=== PATIENT | male | born 1945 | race Caucasian/White ===

== ENCOUNTER 2024-05-27 08:26 | Outpatient (CLI) | payer MEDICARE, OTHER, SELFPAY | END 2024-05-27 08:27 | disposition home or self-care (01) | LOC: INJ CL 08:32 | PROVIDERS: PCP Family Medicine; Visit Provider Family Medicine | DX: M54.16 Radiculopathy, lumbar region (principal); M51.36 Other intervertebral disc degeneration, lumbar region | CPT/HCPCS: 64483; J1100; Q9966 ==

== ENCOUNTER 2024-08-08 09:52 | Outpatient (CLI) | payer MEDICARE, OTHER, SELFPAY | END 2024-08-08 09:53 | disposition home or self-care (01) | LOC: INJ CL 09:55 | PROVIDERS: PCP Family Medicine; Visit Provider Family Medicine | DX: M54.16 Radiculopathy, lumbar region (principal); M51.36 Other intervertebral disc degeneration, lumbar region | CPT/HCPCS: 64483; 64484; J1100; Q9966 ==

== ENCOUNTER 2024-12-16 10:05 | Outpatient (CLI) | payer MEDICARE, OTHER, SELFPAY | END 2024-12-16 10:06 | disposition home or self-care (01) | LOC: INJ CL 10:06 | PROVIDERS: PCP Family Medicine; Visit Provider Family Medicine | DX: M54.16 Radiculopathy, lumbar region (principal); M51.369 Other intervertebral disc degeneration, lumbar region without mention of lumbar back pain or lower extremity pain | CPT/HCPCS: 64483; 64484; J1100; Q9966 ==

== ENCOUNTER 2025-04-07 12:15 | Outpatient (CLI) | payer MEDICARE, OTHER, SELFPAY | END 2025-04-07 12:16 | disposition home or self-care (01) | LOC: INJ CL 12:17 | PROVIDERS: PCP Family Medicine; Visit Provider Family Medicine | DX: M54.16 Radiculopathy, lumbar region (principal) | CPT/HCPCS: 64483; Q9966 ==

== ENCOUNTER 2025-04-10 12:18 | Outpatient (CLI) | payer MEDICARE, OTHER, SELFPAY | END 2025-04-10 12:19 | disposition home or self-care (01) | LOC: INJ CL 12:19 | PROVIDERS: PCP Family Medicine; Visit Provider Family Medicine | DX: M54.16 Radiculopathy, lumbar region (principal) | CPT/HCPCS: 64483; Q9966 ==

== ENCOUNTER 2025-06-12 08:31 | Outpatient (CLI) | payer MEDICARE, OTHER, SELFPAY | END 2025-06-12 08:32 | disposition home or self-care (01) | LOC: INJ CL 08:33 | PROVIDERS: PCP Family Medicine; Visit Provider Family Medicine | DX: M47.816 Spondylosis without myelopathy or radiculopathy, lumbar region (principal) | CPT/HCPCS: 64493; 64494; J0702; Q9966 ==